=== PATIENT | male | born 1950 | race Caucasian/White ===

== ENCOUNTER 2017-12-15 02:20 | Emergency (ER) | payer BC ==
[~2017-12-15] VITALS: Ht 180.3 cm; Wt 90.8 kg
[~2017-12-15 02:20] MED LIST: CIPRO500 MG PO; FLAGYL500 MG PO; LEVOTHYROXINE112 MCG PO; LORTAB 5-325 M1 EACH PO; ZOFRAN ODT4 MG PO
[2017-12-15 02:39] LABS: HEMATOCRIT 42.4 % (38.0-50.0); HEMOGLOBIN 14.6 G/DL (12.5-16.6); MCH 29.3 PG (29.0-34.0); MCHC 34.4 G/DL (30.0-36.0); MCV 85.1 FL (86-99); PLATELET COUNT 199 K/uL (156-360); RBC DIS.WIDTH-CV 12.7 % (11.8-14.6); RED BLOOD COUNT 4.98 M/uL (4.00-5.50); WHITE BLOOD COUNT 8.8 K/uL (4.1-10.2)
[2017-12-15 02:50] LABS: ALBUMIN 4.4 g/dL (3.2-4.8); CHLORIDE 105 mEq/L (99-109); POTASSIUM 4.2 mEq/L (3.7-5.4); SODIUM 139 mEq/L (136-147)
[2017-12-15 02:53] LABS: GLUCOSE 107 mg/dL (70-99); TOTAL PROTEIN 6.9 g/dL (6.4-8.3)
[2017-12-15 02:55] LABS: TOTAL BILIRUBIN 0.4 mg/dL (0.0-1.0)
[2017-12-15 02:56] LABS: ALKALINE PHOSPHATASE 61 IU/L (3-129); CREATININE 0.8 mg/dL (0.6-1.3); GFR ESTIMATE (CALCULATED) > 59 mL/min/ (58.99-99999)
[2017-12-15 02:57] LABS: UREA NITROGEN (BUN) 17 mg/dL (9-23)
[2017-12-15 02:58] LABS: AST (GOT) 17 IU/L (2-34)
[2017-12-15 02:59] LABS: ALT (GPT) 15 IU/L (3-49)
[2017-12-15] MEDS ORDERED: LEVAQUIN750 MG PO (03:55)
[2017-12-15] MEDS ORDERED: ZOFRAN4 MG PO (03:55)
[2017-12-15] MEDS ORDERED: FLAGYL500 MG PO (03:55)
[2017-12-15] MEDS ORDERED: ULTRAM50 MG PO (03:55)
[2017-12-15 04:14] VITALS: BP 153/93
== END 2017-12-15 04:19 | disposition home or self-care (01) ==
LOC: EME 02:20
DX: K57.32 Diverticulitis of large intestine without perforation or abscess without bleeding (principal); E03.9 Hypothyroidism, unspecified; Z87.891 Personal history of nicotine dependence
CPT/HCPCS: 74177; 80053; 81003; 85027; 99281; 99285; J7030